=== PATIENT | female | born 2000 | race Caucasian/White ===

== ENCOUNTER 2024-01-11 05:54 | Emergency (ER) | payer MEDICAID ==
[~2024-01-11] VITALS: Ht 177.8 cm; Wt 50.0 kg
[2024-01-11 05:58] VITALS: TEMP 98.2; O2SAT 100
[2024-01-11 06:40] LABS: BASOPHILS % 1.4 % (0.0-2.0); EOSINOPHILS % 3.4 % (0.0-5.0); HEMATOCRIT. 43.6 % (36.0-48.0); HEMOGLOBIN. 14.9 g/dL (12.0-16.0); LYMPHOCYTES % 34.3 % (20.0-50.0); MEAN CORPUSCULAR HEMOGLOBIN 33.4 pg (28.0-32.0); MEAN CORPUSCULAR HGB CONC 34.1 g/dL (31.0-37.0); MEAN PLATELET VOLUME 8.4 fl (7.4-10.4); MONOCYTES % 8.9 % (2.0-8.0); PLATELET 311 x1000/uL (130-400); RED BLOOD CELL COUNT 4.45 mill/uL (4.2-5.4); RED CELL DISTRIBUTION WIDTH 12.2 % (11.6-14.6); WHITE BLOOD COUNT 5.5 x1000/uL (4.5-11.0)
[2024-01-11 06:53] LABS: CHLORIDE 108 mEq/L (98-107); POTASSIUM 3.8 mEq/L (3.5-5.1); SODIUM 140 mEq/L (136-145)
[2024-01-11 06:54] LABS: CARBON DIOXIDE 23 mEq/L (21-32)
[2024-01-11 06:55] LABS: CALCIUM 9.4 mg/dL (8.7-10.4)
[2024-01-11 07:00] LABS: CREATININE 0.9 mg/dL (0.6-1.0); ETHANOL BLOOD 144 mg/dL (<10); GLUCOSE 88 mg/dL (70-105); UREA NITROGEN BLOOD 6 mg/dL (9-23)
[2024-01-11 07:01] LABS: ALANINE AMINOTRANSFERASE 11 IU/L (10-49); ASPARTATE AMINOTRANSFERASE 20 IU/L (<34)
[2024-01-11 07:02] LABS: ALBUMIN 4.5 g/dL (3.2-4.8); BILIRUBIN DIRECT 0.2 mg/dL (<=3.0); BILIRUBIN TOTAL 0.7 mg/dL (0.1-1.0); PROTEIN TOTAL 7.2 g/dL (6.0-8.3)
[2024-01-11] MEDS: SODIUM CHLORIDE 0.9% 1,000 ML IV ONE (07:06)
[2024-01-11] MEDS: ONDANSETRON HCL 4MG/2ML INJ IV STA (07:06)
[2024-01-11 07:17] LABS: INR 1.1; PROTHROMBIN TIME 12.4 sec (9.6-11.0)
[2024-01-11 07:39] LABS: *AMPHETAMINES SCREEN URINE NEGATIVE (NEGATIVE); *BARBITURATES SCREEN URINE NEGATIVE (NEGATIVE); *BENZODIAZEPINES SCREEN URINE NEGATIVE (NEGATIVE); *COCAINE SCREEN URINE NEGATIVE (NEGATIVE); CANNABINOID URINE SCREEN NEGATIVE (NEGATIVE); ECSTASY MDMA SCREEN URINE NEGATIVE (NEGATIVE); METHADONE URINE SCREEN NEGATIVE (NEGATIVE); OPIATES URINE SCREEN NEGATIVE (NEGATIVE); PHENCYCLIDINE URINE SCREEN NEGATIVE (NEGATIVE)
[2024-01-11 08:00] LABS: CLARITY URINE CLEAR (CLEAR); COLOR URINE YELLOW (YELLOW); GLUCOSE URINE NEGATIVE (NEGATIVE); KETONES URINE NEGATIVE (NEGATIVE); LEUKOCYTE ESTERASE URINE 2+ (NEGATIVE); NITRITE URINE POSITIVE (NEGATIVE); OCCULT BLOOD URINE NEGATIVE (NEGATIVE); PH URINE 7.5 (4.5-8.0); PROTEIN URINE NEGATIVE (NEGATIVE); SPECIFIC GRAVITY URINE 1.008 (1.005-1.030); UROBILINOGEN URINE 0.2 E.U./dL (0.2-1.0)
[2024-01-11 08:33] LABS: HCG SCREEN NEGATIVE
[2024-01-11 08:44] LABS: BACTERIA URINE 4+; SQUAMOUS EPITHELIAL CELL URINE 3+ /lpf (RARE/1+)
[2024-01-11 08:46] LABS: MUCUS URINE TRACE /lpf (< = 2+)
[2024-01-11 08:47] LABS: RBC URINE 0-2 /hpf (0-2)
[2024-01-11] MEDS ORDERED: NITR-87 MT (09:18)
[2024-01-11 10:32] VITALS: BP 98/55; PULSE 79; RESP 13
== END 2024-01-11 10:46 | disposition home or self-care (01) ==
LOC: ER 05:54
DX: F10.129 Alcohol abuse with intoxication, unspecified (principal); N39.0 Urinary tract infection, site not specified; F17.200 Nicotine dependence, unspecified, uncomplicated; F31.9 Bipolar disorder, unspecified; Y90.6 Blood alcohol level of 120-199 mg/100 ml
CPT/HCPCS: 80076; 80305; 80048; 81003; 80320; 84703; 83690; 85025; 85610; 36415; 96361; 96374; 99283; J2405; J7030; Z7610 ×2; G0480

== ENCOUNTER 2025-01-07 10:52 | Emergency (ER) | payer MEDICAID ==
[~2025-01-07] VITALS: Ht 162.6 cm; Wt 60.0 kg
[~2025-01-07 10:52] MED LIST: NITR-87 MT
[2025-01-07 10:53] VITALS: O2SAT 100
[2025-01-07] MEDS: LORAZEPAM 1MG TABLET PO ONE (11:09)
[2025-01-07 11:29] LABS: BASOPHILS % 1.5 % (0.0-2.0); EOSINOPHILS % 1.6 % (0.0-5.0); HEMATOCRIT. 39.5 % (36.0-48.0); HEMOGLOBIN. 13.6 g/dL (12.0-16.0); LYMPHOCYTES % 24.4 % (20.0-50.0); MEAN PLATELET VOLUME 7.8 fl (7.4-10.4); MONOCYTES % 9.8 % (2.0-8.0); NEUTROPHILS % 62.7 % (40.0-76.0); PLATELET 177 x1000/uL (130-400); RED BLOOD CELL COUNT 3.96 mill/uL (4.2-5.4); RED CELL DISTRIBUTION WIDTH 13.5 % (11.6-14.6)
[2025-01-07 11:45] LABS: CREATININE 0.7 mg/dL (0.6-1.0); UREA NITROGEN BLOOD < 5 mg/dL (9-23)
[2025-01-07 11:46] LABS: HCG SCREEN NEGATIVE
[2025-01-07 11:55] LABS: ETHANOL BLOOD 306 mg/dL (<10)
[2025-01-07 17:02] LABS: *AMPHETAMINES SCREEN URINE NEGATIVE (NEGATIVE); *BARBITURATES SCREEN URINE NEGATIVE (NEGATIVE); *BENZODIAZEPINES SCREEN URINE NEGATIVE (NEGATIVE); *COCAINE SCREEN URINE NEGATIVE (NEGATIVE); CANNABINOID URINE SCREEN NEGATIVE (NEGATIVE); METHADONE URINE SCREEN NEGATIVE (NEGATIVE); OPIATES URINE SCREEN NEGATIVE (NEGATIVE); PHENCYCLIDINE URINE SCREEN NEGATIVE (NEGATIVE)
[2025-01-07 17:03] LABS: ECSTASY MDMA SCREEN URINE NEGATIVE (NEGATIVE)
[2025-01-07] MEDS: CHLORDIAZEPOXIDE 25MG CAPSULE PO NR (18:41)
[2025-01-07] MEDS: DIPHENHYDRAMINE 25MG CAPSULE PO SCH (22:00)
[2025-01-08] MEDS: CHLORDIAZEPOXIDE 25MG CAPSULE PO ONE (08:41)
[2025-01-08 08:51] VITALS: BP 117/80; PULSE 73; RESP 18; TEMP 36.8; O2SAT 100
== END 2025-01-08 09:13 | disposition home or self-care (01) ==
LOC: ER 11:03
DX: R45.851 Suicidal ideations (principal); F10.129 Alcohol abuse with intoxication, unspecified; F31.9 Bipolar disorder, unspecified; Z91.148 Patient's other noncompliance with medication regimen for other reason; Z20.822 Contact with and (suspected) exposure to COVID-19; Y90.8 Blood alcohol level of 240 mg/100 ml or more
CPT/HCPCS: 80305; 80048; 80320; 84703; 85025; 36415; 99285; 87426; Q0163; G0480